=== PATIENT | male | born 1975 | race Caucasian/White ===

== ENCOUNTER 2017-04-05 21:47 | Inpatient (IN) | payer OTHER ==
[2017-04-05] MEDS ORDERED: NITROGLYCERIN 0.4 MG/TAB 25 TAB/BOTTLE SL PRN (23:48)
[2017-04-05] MEDS ORDERED: ASPIRIN 81 MG TABLET, CHEWABLE PO ONE (23:48)
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
[2017-04-06 00:51] LABS: ABSOLUTE BASOPHILS # (AUTO) 0.1 10^3/uL (0.0-0.2); ABSOLUTE EOSINOPHILS # (AUTO) 0.3 10^3/uL (0.0-0.6); ABSOLUTE LYMPHOCYTES (AUTO) 3.4 10^3/uL (0.5-4.7); ABSOLUTE MONOCYTES (AUTO) 0.5 10^3/uL (0.1-1.4); ABSOLUTE NEUT (AUTO) 3.5 10^3/uL (1.7-8.2); BASOPHILS % (AUTO) 0.9 % (0-2); EOSINOPHILS % (AUTO) 3.9 % (0-6); HEMATOCRIT 43.2 % (37.9-51.0); HGB HCT DIFFERENCE 1.8; LYMPHOCYTES % (AUTO) 44.1 % (13-45); MEAN CORPUSCULAR HEMOGLOBIN 31.1 pg (27.0-33.4); MEAN CORPUSCULAR HGB CONC 34.7 g/dL (32.0-36.0); MEAN CORPUSCULAR VOLUME 90 fl (80-97); MONOCYTES % (AUTO) 6.1 % (3-13); RED BLOOD COUNT 4.82 10^6/uL (4.35-5.55); WHITE BLOOD COUNT 7.7 10^3/uL (4.0-10.5)
[2017-04-06 01:07] LABS: ALANINE AMINOTRANSFERASE 29 U/L (21-72); ALBUMIN 3.9 g/dL (3.5-5.0); ALKALINE PHOSPHATASE 77 U/L (38-126); ANION GAP 10 (5-19); ASPARTATE AMINO TRANSFERASE 15 U/L (17-59); BLOOD UREA NITROGEN 12 mg/dL (7-20); CALCIUM 9.1 mg/dL (8.4-10.2); CARBON DIOXIDE 28 mmol/L (22-30); CHLORIDE 107 mmol/L (98-107); CREATINE KINASE 53 U/L (55-170); CREATININE RESULT 0.78 mg/dL (0.52-1.25); GLUCOSE 93 mg/dL (75-110); MAGNESIUM 1.9 mg/dL (1.6-2.3); TOTAL PROTEIN 6.4 g/dL (6.3-8.2)
[2017-04-06 01:10] LABS: BILIRUBIN,TOTAL < 0.1 mg/dL (0.2-1.3)
[2017-04-06 01:25] LABS: CREATINE KINASE MB 0.58 ng/mL (<4.55)
[2017-04-06 01:29] LABS: TROPONIN I 0.081 ng/mL
--- NOTE | 2017-04-06 01:34 | RADIOLOGY REPORT (SQ) ---
EXAM DESCRIPTION: CHEST PA/LAT CLINICAL HISTORY: chest pain COMPARISON: None. FINDINGS: Single frontal view of the chest. The cardiomediastinal silhouette has normal size and contour. No consolidation, pneumothorax, or pleural effusion. No displaced rib fractures identified. Upper abdominal soft tissues are unremarkable. Leads overlie the chest. IMPRESSION: 1. No acute pulmonary process identified.
[2017-04-06] MEDS ORDERED: NITROGLYCERIN 2% OINTMENT 1 GM PACKET TP ONE (01:39)
[2017-04-06] MEDS ORDERED: MORPHINE SULFATE 10 MG/ML INJ IV PRN (01:54)
[2017-04-06] MEDS ORDERED: MAG HYDROX/AL HYDROX/SIMETH SUSP 30 ML UDCUP PO PRN (01:54)
[2017-04-06] MEDS ORDERED: METOPROLOL TARTRATE PF/INJ 5 MG/5 ML SDV IV PRN (01:54)
[2017-04-06] MEDS ORDERED: DIAZEPAM 5 MG TABLET PO PRN (01:54)
[2017-04-06] MEDS ORDERED: NITROGLYCERIN 0.4 MG/TAB 25 TAB/BOTTLE SL PRN (01:54)
[2017-04-06] MEDS ORDERED: LANSOPRAZOLE 15 MG TAB.RAP.DR PO ONE (01:54)
[2017-04-06 02:31] LABS: URINE BARBITURATES SCREEN NEGATIVE; URINE METHADONE SCREEN NEGATIVE; URINE OPIATES LOW NEGATIVE; URINE PHENCYCLIDINE SCREEN NEGATIVE
[2017-04-06] MEDS ORDERED: ATORVASTATIN CALCIUM 40 MG TABLET PO ONE (02:45)
--- NOTE | 2017-04-06 03:37 | PDOC H&P ---
History of Present Illness Admission Date/PCP: 04/06/17 02:06 [place] History of Present Illness: BERNADETTE DE SANTIAGO is a 41 year old male with a past medical history of arthritis who presents emergency department with complaints of chest pain. Patient reports chest pain started abruptly on Saturday. Patient reports that it was in the center of his chest and radiated into his left chest and left arm. He describes this as pressure associated with shortness of breath. He denies any nausea vomiting or metallic taste in his mouth. He denies any diaphoresis. He does report that he had some episodes of dizziness associated with this. He reports that the pressure would last for about 10-15 minutes and then relieved on its own. He denies any exacerbating or alleviating factors. He reports that it became worse when he laid down last night. He denies any change with his pressure with eating. He is referred to the hospital service for chest pain. Past Medical History Pulmonary Medical History: Reports: None GI Medical History: Reports: Gastroesophageal Reflux Disease Musculoskeltal Medical History: Reports: Arthritis Past Surgical History Past Surgical History: Reports: Orthopedic Surgery, Other - b/l bunion surgery Social History Lives with: Alone Smoking Status: Current Every Day Smoker Cigarettes Packs Per Day: 1 Frequency of Alcohol Use: None Hx Recreational Drug Use: No Hx Prescription Drug Abuse: No - Advance Directive Resuscitation Status: Do Not Resuscitate Surrogate healthcare decision maker:: irma Lofton Family History Family History: CAD, Other - Patient's mother at age 58 of cancer. She did have coronary artery disease and in the late 40s had stents placed. Patient 's maternal grandfather had a CABG and he began with heart problems in his late 40s as well. Patient is unaware of his father's history. Parental Family History Reviewed: Yes Children Family History Reviewed: Yes Sibling(s) Family History Reviewed.: Yes Medication/Allergy Home Medications: No Home Medications 04/06/17 Allergies/Adverse Reactions: codeine Allergy (Verified 04/06/17 00:56) Review of Systems Constitutional: ABSENT: chills, fever(s), headache(s), weight gain, weight loss Eyes: ABSENT: visual disturbances Ears: ABSENT: hearing changes Cardiovascular: PRESENT: as per HPI, chest pain. ABSENT: dyspnea on exertion, edema, orthropnea, palpitations Respiratory: ABSENT: cough, hemoptysis Gastrointestinal: ABSENT: abdominal pain, constipation, diarrhea, hematemesis, hematochezia, nausea, vomiting Genitourinary: ABSENT: dysuria, hematuria Musculoskeletal: ABSENT: joint swelling Integumentary: ABSENT: rash, wounds Neurological: ABSENT: abnormal gait, abnormal speech, confusion, dizziness, focal weakness, syncope Psychiatric: ABSENT: anxiety, depression, homidical ideation, suicidal ideation Endocrine: ABSENT: cold intolerance, heat intolerance, polydipsia, polyuria Hematologic/Lymphatic: ABSENT: easy bleeding, easy bruising Physical Exam Vital Signs: Temp Pulse Resp BP Pulse Ox 98.3 F 75 20 117/78 99 04/05/17 21:56 04/05/17 21:56 04/06/17 02:00 04/06/17 00:36 04/06/17 02:00 General appearance: PRESENT: no acute distress, well-developed, well-nourished Head exam: PRESENT: atraumatic, normocephalic Eye exam: PRESENT: conjunctiva pink, EOMI, PERRLA. ABSENT: scleral icterus Ear exam: PRESENT: normal external ear exam Mouth exam: PRESENT: moist, tongue midline Neck exam: ABSENT: JVD Respiratory exam: PRESENT: clear to auscultation zohreh, prolonged expiratory phas. ABSENT: rales, rhonchi, wheezes Cardiovascular exam: PRESENT: RRR. ABSENT: diastolic murmur, rubs, systolic murmur Vascular exam: PRESENT: normal capillary refill GI/Abdominal exam: PRESENT: normal bowel sounds, soft. ABSENT: distended, firm , guarding, mass, organolmegaly, rebound, rigid, tenderness Rectal exam: PRESENT: deferred Extremities exam: PRESENT: full ROM. ABSENT: calf tenderness, clubbing, pedal edema Neurological exam: PRESENT: alert, awake, oriented to person, oriented to place , oriented to time, oriented to situation, CN II-XII grossly intact. ABSENT: motor sensory deficit Psychiatric exam: PRESENT: appropriate affect, normal mood. ABSENT: homicidal ideation, suicidal ideation Skin exam: PRESENT: dry, intact, warm. ABSENT: cyanosis, rash Results Laboratory Results: 04/06/17 04/06/17 04/06/17 00:35 00:35 00:35 WBC 7.7 Hgb 15.0 Creatinine 0.78 Troponin I 0.081 TSH 04/06/17 00:35 WBC Hgb Creatinine Troponin I TSH 2.27 Impressions: Chest X-Ray 04/05/17 23:48 IMPRESSION: 1. No acute pulmonary process identified. Status: Imported from PACS Assessment & Plan - Diagnosis (1) Chest pain Qualifiers: Chest pain type: precordial pain Qualified Code(s): R07.2 - Precordial pain Is this a current diagnosis for this admission?: Yes Plan: Place patient on telemetry observation. Monitor for arrhythmia or ST segment changes. Initiate patient on treatment dose Lovenox. Initiate patient on metoprolol, Lipitor, oxygen, nitroglycerin, morphine, and aspirin. Serial cardiac enzymes every 6 hours. Testing lipid panel in the morning. Have advised patient to have stress test, but he is concerned about cost and would [facility]. (2) Tobacco abuse Is this a current diagnosis for this admission?: Yes Plan: Patient is advised to stop using tobacco. - Time Time Spent: 30 to 50 Minutes Medications reviewed and adjusted accordingly: Yes Anticipated discharge: Home Within: within 24 hours - Inpatient Certification Based on my medical assessment, after consideration of the patient's comorbidities, presenting symptoms, or acuity I expect that the services needed warrant INPATIENT care.: No I certify that my determination is in accordance with my understanding of Medicare's requirements for reasonable and necessary INPATIENT services [42 CFR 412.3e].: No Post Hospital Care: D/C Guidance Secretary Documentation
--- NOTE | 2017-04-06 05:41 | EKG REPORT ---
SEVERITY:- ABNORMAL ECG - SINUS RHYTHM PROBABLE LEFT ATRIAL ABNORMALITY CONSIDER ANTEROSEPTAL INFARCT BORDERLINE T ABNORMALITIES, LATERAL LEADS : Confirmed by: Tone Estevez 06-Apr-2017 05:41:00
[2017-04-06 07:45] LABS: Direct HDL 31 mg/dL (>40); TRIGLYCERIDES 54 mg/dL (<150)
[2017-04-06 07:55] LABS: DIRECT LDL 134 mg/dL (<100)
[2017-04-06 07:57] LABS: CREATINE KINASE MB 1.39 ng/mL (<4.55)
[2017-04-06 08:03] LABS: TROPONIN I 0.162 ng/mL
[2017-04-06] MEDS: ENOXAPARIN SODIUM INJ 80 MG/0.8 ML DISP.SYRIN SUBCUT SCH ×2 (09:38→21:38)
[2017-04-06] MEDS: ASPIRIN 325 MG TABLET, ENT COATED PO SCH (09:38)
[2017-04-06] MEDS: LOSARTAN POTASSIUM 25 MG TABLET PO SCH (09:39)
[2017-04-06] MEDS: FAMOTIDINE 20 MG TABLET PO SCH ×2 (09:39→21:38)
[2017-04-06 13:29] LABS: CREATINE KINASE MB 1.6 ng/mL (<4.55); TROPONIN I 0.204 ng/mL
--- NOTE | 2017-04-06 18:45 | PDOC PROGRESS REPORT ---
Subjective Progress Note for:: 04/06/17 Subjective:: This is a follow-up visit for chest pain. The patient states that he has not had any chest pain all day today. He is concerned about how his stay will be pain for considering he is [facility]. Repeat troponins have trended up somewhat. It is currently at 0.2. I spoke with Dr. Rodas who feels that he can get a stress test done tomorrow so long as his troponins come back down by tomorrow. If not the patient will of course have to be transferred out for potential for cardiac cath. Reason For Visit: CHEST PAIN Physical Exam Vital Signs: Temp Pulse Resp BP Pulse Ox 97.9 F 61 15 116/66 96 04/06/17 16:27 04/06/17 16:27 04/06/17 16:27 04/06/17 16:27 04/06/17 16:27 Intake & Output 04/05/17 04/06/17 04/07/17 06:59 06:59 06:59 Intake Total 600 Balance 600 Weight 82.2 kg GENERAL: This is a well-developed and nourished appearing white male resting in bed appearing frustrated but friendly and in no acute distress. HEART: Regular rate and rhythm. No murmurs, rubs or gallops. LUNGS: Clear to auscultation bilaterally with equal rise and fall of the chest. ABDOMEN: Soft, nontender, nondistended with normoactive bowel sounds EXTREMETIES: No clubbing, cyanosis or edema. 2+ peripheral pulses bilaterally. NEURO: Awake, alert and oriented 3. Cranial nerves II through XII are grossly intact. The patient walks steadily and quickly. Results Laboratory Results: 04/06/17 06:47 Triglycerides 54 Cholesterol 179.50 LDL Cholesterol Direct 134 H VLDL Cholesterol 11.0 HDL Cholesterol 31 L 04/06/17 04/06/17 06:47 12:41 CK-MB (CK-2) 1.39 1.60 Troponin I 0.162 0.204 Impressions: Chest X-Ray 04/05/17 23:48 IMPRESSION: 1. No acute pulmonary process identified. Assessment & Plan - Diagnosis (1) Chest pain Qualifiers: Chest pain type: precordial pain Qualified Code(s): R07.2 - Precordial pain Is this a current diagnosis for this admission?: Yes Plan: An STEMI. Patient's troponins are slightly elevated at 0.2. Hopefully the low back down at the next repeat in the patient can likely have a stress test. If not he will need to be transferred out for cardiac cath. (2) Tobacco abuse Is this a current diagnosis for this admission?: Yes Plan: Smoking cessation is advised. - Time Time Spent with patient: 35 or more minutes - Inpatient Certification Medical Necessity: Need Close Monitoring Due to Risk of Patient Decompensation
[2017-04-06 19:11] LABS: CREATINE KINASE MB 1.34 ng/mL (<4.55); TROPONIN I 0.181 ng/mL
[2017-04-06] MEDS: ATORVASTATIN CALCIUM 40 MG TABLET PO SCH (21:38)
[2017-04-07] MEDS: FAMOTIDINE 20 MG TABLET PO SCH ×2 (10:22→21:49)
[2017-04-07] MEDS: ASPIRIN 325 MG TABLET, ENT COATED PO SCH (10:22)
[2017-04-07] MEDS: LOSARTAN POTASSIUM 25 MG TABLET PO SCH (10:22)
[2017-04-07] MEDS: ENOXAPARIN SODIUM INJ 80 MG/0.8 ML DISP.SYRIN SUBCUT SCH ×2 (10:22→21:49)
--- NOTE | 2017-04-07 11:46 | EKG REPORT ---
SEVERITY:- ABNORMAL ECG - SINUS RHYTHM ABNORMAL T, CONSIDER ISCHEMIA, INFERIOR LEADS : Confirmed by: Tone Estevez 07-Apr-2017 11:45:49
[2017-04-07] MEDS ORDERED: GLUCAGON,HUMAN RECOMB 1 MG INJ SUBCUT PRN (11:52)
[2017-04-07] MEDS ORDERED: DEXTROSE 40% GEL 15 GM TUBE PO PRN ×2 (11:52)
[2017-04-07] MEDS ORDERED: DEXTROSE 50%-WATER 25 GM/50 ML DISP.SYRIN IV PRN ×2 (11:52)
--- NOTE | 2017-04-07 13:59 | PDOC DISCHARGE SUMMARY ---
General - Admit/Disc Date/PCP Admission Date/Primary Care Provider: 04/06/17 02:06 Discharge Date: 04/07/17 - Discharge Diagnosis (1) NSTEMI (non-ST elevated myocardial infarction) Is this a current diagnosis for this admission?: Yes Summary: Transfer [facility] for cardiac catheter[facility]. (2) Tobacco abuse Is this a current diagnosis for this admission?: Yes Summary: Smoking cessation is advised. - Additional Information Resuscitation Status: Do Not Resuscitate Home Medications: No Home Medications 04/06/17 History of Present Illness History of Present Illness: BERNADETTE DE SANTIAGO is a 41 year old white male with a significant family history of cardiovascular disease who presented to the service with 2 days of chest discomfort. Please see the details of the patient's admission below as per the admitting physician. History of Present Illness Admission Date/PCP: 04/06/17 02:06 [place] History of Present Illness: BERNADETTE DE SANTIAGO is a 41 year old male with a past medical history of arthritis who presents emergency department with complaints of chest pain. Patient reports chest pain started abruptly on Saturday. Patient reports that it was in the center of his chest and radiated into his left chest and left arm. He describes this as pressure associated with shortness of breath. He denies any nausea vomiting or metallic taste in his mouth. He denies any diaphoresis. He does report that he had some episodes of dizziness associated with this. He reports that the pressure would last for about 10-15 minutes and then relieved on its own. He denies any exacerbating or alleviating factors. He reports that it became worse when he laid down last night. He denies any change with his pressure with eating. He is referred to the hospital service for chest pain. Hospital Course Hospital Course: Patient was initially admitted to the observation unit. His troponin initially was normal and then was found to be elevated at 0.1. The patient's troponin continue to trend up to 0.2. During this time the patient had no complaints of chest pain. Discussions were had with him about the possibility for need for transfer. Patient was largely concerned about expense and whether or not the [facility] would pay for him to be seen at another facility. He was already concerned for having been admitted to observation. He was aware that the [facility] will pay for an emergency room visit but had concerns about any sort of hospitalization - observation or otherwise. I managed to convince the patient to stay and allow us to continue to trend his troponins. The yardage estimator on service had said that he could go for stress test if his troponins came back down to normal. No EKG changes. This morning the patient still has no chest discomfort. However his EKG has changed today. He now has [address] segment depressions in the inferior leads. On admission T waves were flattened. Dr. Rodas and I spoke about the patient's case. His troponins had come down but was still technically elevated. We feel that he needs a cardiac cath and likely, stents. The patient again expresses concerns about his finances. He is willing to be transferred but still has concerns about whether or not it would be paid for. Even after speaking with discharge planning and my relaying messages the patient was uncomfortable so we have asked discharge planning combined speak with him. In the meantime, I have contacted [facility] and spoken with bed placement as well as Dr. Froy Rubin. He is been accepted in transfer. The plan is for him to be transferred out of 5 in the morning. They have already been in contact with the cardiology service there and he should have cardiac cath tomorrow. Patient is agreeable to this. Physical Exam Vital Signs: Temp Pulse Resp BP Pulse Ox 97.6 F 66 18 118/74 98 04/07/17 07:44 04/07/17 07:44 04/07/17 07:44 04/07/17 07:44 04/07/17 07:44 Intake & Output 04/06/17 04/07/17 04/08/17 06:59 06:59 06:59 Intake Total 1290 Balance 1290 Weight 82.2 kg 78 kg GENERAL: This is a well-developed and nourished appearing white male resting in bed appearing in no acute distress. HEART: Regular rate and rhythm. No murmurs, rubs or gallops. LUNGS: Clear to auscultation bilaterally with equal rise and fall of the chest. ABDOMEN: Soft, nontender, nondistended with normoactive bowel sounds EXTREMETIES: No clubbing, cyanosis or edema. 2+ peripheral pulses bilaterally. NEURO: Awake, alert and oriented 3. Cranial nerves II through XII are grossly intact. The patient walks steadily and quickly. Results Laboratory Results: 04/06/17 04/06/1704/06/17 06:47 12:41 18:25 Creatine Kinase CK-MB (CK-2) 1.39 1.60 1.34 Troponin I 0.162 0.204 0.181 04/07/17 04/07/17 04/07/17 00:45 06:33 06:33 Creatine Kinase 38 L CK-MB (CK-2) Troponin I 0.150 0.137 Impressions: Chest X-Ray 04/05/17 23:48 IMPRESSION: 1. No acute pulmonary process identified. Qualifiers PATEINT BEING DISCHARGED WITH ANY OF THE FOLLOWING DIAGNOSIS?: No Plan Time Spent: Greater than 30 Minutes
[2017-04-07] MEDS: ATORVASTATIN CALCIUM 40 MG TABLET PO SCH (21:49)
[2017-04-08 00:24] VITALS: BP 116/69
[2017-04-08 04:39] LABS: HEMATOCRIT 44.9 % (37.9-51.0); HEMOGLOBIN 15.6 g/dL (13.5-17.0); HGB HCT DIFFERENCE 1.9; MEAN CORPUSCULAR HGB CONC 34.7 g/dL (32.0-36.0); MEAN CORPUSCULAR VOLUME 89 fl (80-97); RED BLOOD COUNT 5.03 10^6/uL (4.35-5.55); RED CELL DISTRIBUTION WIDTH 13.2 % (11.5-14.0); WHITE BLOOD COUNT 6.9 10^3/uL (4.0-10.5)
== END 2017-04-08 05:08 | disposition short-term general hospital (02) | DRG 282 ==
LOC: ER 21:47 → OBSVTOIN 04-06 02:06 → EH 04-06 02:06 → 5 04-06 04:10
PROVIDERS: ADMIT Family Medicine; ATTEND Family Medicine
DX: I21.4 Non-ST elevation (NSTEMI) myocardial infarction (principal); M19.90 Unspecified osteoarthritis, unspecified site; K21.9 Gastro-esophageal reflux disease without esophagitis; F17.210 Nicotine dependence, cigarettes, uncomplicated; Z66 Do not resuscitate; Z88.6 Allergy status to analgesic agent; Z82.49 Family history of ischemic heart disease and other diseases of the circulatory system
CPT/HCPCS: 36415; 71020; 80053; 80061; 80307; 82550; 82553; 83735; 84443; 84484; 85025; 85027; 93005; 93010; 99285; J1650; J3490